=== PATIENT | female | born 1980 | race Hispanic/Latino ===

== ENCOUNTER 2020-08-10 22:45 | Emergency (ER) | payer SELFPAY ==
[2020-08-10] MEDS ORDERED: CLINDAMYCIN IVPB 600MG/50ML 50 ML IV ONE (23:14)
== END 2020-08-10 23:56 | disposition home or self-care (01) ==
LOC: EDH 22:45
DX: H00.012 Hordeolum externum right lower eyelid (principal); Z72.0 Tobacco use; Z90.710 Acquired absence of both cervix and uterus
CPT/HCPCS: 96365; 99284; J3490